=== PATIENT | female | born 1935 | race Asian ===

== ENCOUNTER 2017-05-24 21:44 | Inpatient (IN) | payer MEDICARE, MEDICAID ==
--- NOTE | 2017-05-24 22:29 | ED Physician Chart ---
Chief Complaint/HPI - Patient Information Date Seen:: 05/24/17 Time Seen:: 22:24 Chief Complaint:: abd pain and OH History of Present Illness:: pt here for abd pain x3days in epigastrium. pt speaks no turkish..kyrgyz only. dtr is here and feels comfortable w translating...hx obtained through dtr. pt is eating ok and no change in urine or bm's. no constipation nor diarrhea. no known fever. chronic back pain unchanged. total body pain (per dtr)..usually improves w tylenol. dtr also is concerned pt has had numbness in bilat hands/feet x 2weeks on/off. no trauma. no known cva or mi hx ...although pts mom did have a cva. pt had a sx on neck for spinal stenosis 1 yr ago and hasnt been ambulatory since. pt wears diaper and is chronically incontinent. pt c/o OH now. Allergies:: Allergies Allergy/AdvReac Type Severity Reaction Status Date / Time No Known Allergies Allergy Verified 05/24/17 21:58 Historian:: Patient, Family Member (mom) Review of Systems - Review of Systems General/Constitutional: No fever, No chills, No weight loss, No weakness, No diaphoresis, No edema, No loss of appetite Skin: No skin lesions, No rash, No bruising Head: No headache, No light-headedness Eyes: No loss of vision, No pain, No diplopia ENT: No earache, No nasal drainage, No sore throat, No tinnitus Neck: No neck pain, No swelling, No thyromegaly, No stiffness, No mass noted Cardio Vascular: No chest pain, No palpitations, No PND, No orthopnea, No edema Pulmonary: No SOB, No cough, No sputum, No wheezing GI: No nausea, No vomiting, No diarrhea, Pain, No melena, No hematochezia, No constipation, No hematemesis G/U: No dysuria, No frequency, No hematuria Musculoskeletal: No bone or joint pain, No back pain, No muscle pain Endocrine: No polyuria, No polydipsia Psychiatric: No prior psych history, No depression, No anxiety, No suicidal ideation Hematopoietic: No bruising, No lymphadenopathy Allergic/Immuno: No urticaria, No angioedema Neurological: No syncope, No focal symptoms, No weakness, Paresthesia, Headache , No seizure, No dizziness, No confusion, No vertigo Past Medical History - Past Medical History Past Medical History: HTN, Other (spinal stenosis w sx 1 yr ago, nonambulatory, incontinence) Social History: Other (lives w dtr) Surgical History: other (spinal stenosis w sx 1 yr ago, ) Medication: Reviewed Family Medical History - Family Member Daughter Ethnicity: Non- Living Status: Still Living Physical Exam - Physical Examination General/Constitutional: Awake, Well-developed, well-nourished, Alert, No distress, GCS 15, Non-toxic appearing, Ambulatory Other Gen/Cons comments:: mod obese. alert. no turkish so dtr relied on for details.. no obvious neuro defecit but exam ltd. eomi/perrla no focal weakness. pt has a resting tremor notable in face/jaw and b hands...(is chronic per dtr) no focal weakor numb in limbs /cn 2-12. b legs are weak as pt is nonambulatory x 1 yr but no focal loss of fxn nor asymmetry of strength. Head: Atraumatic Eyes: Lids, conjuctiva normal, PERRL, EOMI Skin: Nl inspection, No rash, No skin lesions, No ecchymosis, Well hydrated, No lymphadenopathy ENMT: External ears, nose nl, Nasal exam nl, Lips, teeth, gums nl Neck: Nontender, Full ROM w/o pain, No JVD, No nuchal rigidity, No bruit, No mass, No stridor Other Neck comments:: prior sx fusion//ltd mobility Respiratory: Nl effort/Exclusion, Clear to Auscultation, No Wheeze/Rhonchi/Rales Cardio Vascular: RRR, No murmur, gallop, rubs, NL S1 S2 GI: No organomegaly, No hernia, Normal BS's, Nondistended, No mass/bruits, No McBurney tenderness Other GI comments:: mild tndr diffuse in abd. no aaa . no mass. pos nabs. no rebound. : No CVA tenderness Extremities: No tenderness or effusion, Full ROM, normal strength in all extremities, No edema, Normal digits & nails Neuro/Psych: Alert/oriented, DTR's symmetric, Normal sensory exam, Normal motor strength, Judgement/insight normal, Mood normal, Normal gait, No focal deficits Misc: normal gait, Normal back, No paraspinal tenderness Labs/Radiology/EKG Results - Lab Results Results: Laboratory Tests 05/24/17 05/24/17 22:43 22:43 WBC 6.0 RBC 3.65 L Hgb 10.9 L Hct 33.1 L MCV 90.7 MCH 29.8 MCHC Differential 32.8 RDW 14.3 Plt Count 324 MPV 7.3 Neutrophils % 55.2 Lymphocytes % 36.4 Monocytes % 5.0 Eosinophils % 1.9 Basophils % 1.5 Sodium 135 L Potassium 3.4 L Chloride 103 Carbon Dioxide 26.5 Anion Gap 8.9 BUN 32 H Creatinine 1.6 H Est GFR ( Amer) TNP Est GFR (Non-Af Amer) TNP BUN/Creatinine Ratio 20.0 Glucose 118 H Calcium 9.7 Total Bilirubin 0.2 L AST 15 ALT 12 Alkaline Phosphatase 49 Total Protein 6.9 Albumin 3.6 L Globulin 3.3 Albumin/Globulin Ratio 1.1 Lipase 62 - Radiology Results Results: ct c-spine c3/4 osteophyte causing mod canal narrowing. occiput to c4 fusion ct head 1.5 cm mass l middle fossa ... abd ct- hazy fat stranding. ruq ? omental infarct?...mod sz left femoral hernia containing fat ED Septic Shock - . Is Septic Shock (SBP<90, OR Lactate>4 mmol\L) present?: No Reassessment (Disposition) - Reassessment Reassessment:: case d/w dr coleman..multiple concerns (and dtr left ed wo notice hrs ago) ...will admit. Reassessment Condition:: Unchanged - Diagnosis Diagnosis:: 1 abdominal pain w intra-abdominal inflammatory changes on ct scan 2 intracraneal mass 3 spinal stenosis 2nd osteophyte - Patient Disposition Admitted to:: Telemetry Condition at Disposition:: Unchanged
[2017-05-24] MEDS ORDERED: Donnatal Liq 5 ML UDC PO ONE (22:35)
[2017-05-24] MEDS ORDERED: Maalox 30 mL Cup PO ONE (22:35)
[2017-05-24 22:53] LABS: % BASOPHILS 1.5 % (0.0-2.0); % EOSINOPHILS 1.9 % (0.0-5.0); % LYMPHOCYTES 36.4 % (20.0-50.0); % NEUTROPHILS 55.2 % (40.0-80.0); HEMATOCRIT 33.1 % (35.0-45.0); HEMOGLOBIN 10.9 gm/dL (11.7-16.1); MEAN CELL VOLUME 90.7 fl (81-100); MEAN CORPUSCULAR HEMOGLOBIN 29.8 pg (27.0-31.0); MEAN CORPUSCULAR HGB CONC 32.8 pg (28.0-36.0); MEAN PLATELET VOLUME 7.3 fl; NEUTROPHILE ABSOLUTE 3.3 Th/cmm (1.8-8.0); PLATELET COUNT 324 Th/cmm (150-400); RED BLOOD COUNT 3.65 Mil/cmm (3.80-5.20); RED CELL DISTRIBUTION WIDTH 14.3 % (11.5-20.0)
[2017-05-24 23:07] LABS: ALB/GLOB RATIO 1.1 (1.0-1.8); ALKALINE PHOSPHATASE 49 U/L (34-104); ANION GAP 8.9 (7.0-16.0); BILIRUBIN,TOTAL 0.2 mg/dL (0.3-1.0); BUN - UREA NITROGEN 32 mg/dL (7-25); CALCIUM SERUM 9.7 mg/dL (8.6-10.3); CARBON DIOXIDE 26.5 mEq/L (21.0-31.0); CHLORIDE 103 mEq/L (98-107); CREATININE - SERUM 1.6 mg/dL (0.6-1.2); GLUCOSE 118 mg/dL (70-105); LIPASE 62 U/L (11-82); POTASSIUM SERUM 3.4 mEq/L (3.5-5.1); SGOT 15 U/L (13-39); SGPT/ALT 12 U/L (7-52); SODIUM SERUM 135 mEq/L (136-145)
[2017-05-24] MEDS ORDERED: Donnatal Liq 5 ML UDC ONE (23:28)
[2017-05-24] MEDS ORDERED: Maalox 30 mL Cup ONE (23:28)
--- NOTE | 2017-05-25 02:34 | Admit Criteria Form ---
Admit Criteria Forms - Admit Criteria Diagnosis: ABDOMINAL PAIN Clinical Indications for Admission to Inpatient Care (Place 'X' for any and all applicable criteria): Admission is indicated for ANY ONE of the following(1)(2)(3)(4)(5): [X ]I. Inpatient admission required rather than observation care (Also use Abdominal Pain: Observation Care, as appropriate) because of ANY ONE of the following: [ ]a) Severe pain requiring acute inpatient management [ ]b) Identification of etiology/finding that requires inpatient care (eg, aortic dissection, free air) [ ]c) Absent bowel sounds with complete ileus(6) [ ]d) Suspected toxic megacolon [ ]e) Severe electrolyte abnormalities requiring inpatient care [ ]f) High fever or infection requiring inpatient admission as indicated by ANY ONE of following(7)(8): [ ] i) Appropriate outpatient or observational care antimicrobial treatment unavailable, not effective, or not feasible [ ] ii) Documented bacteremia [ ] iii) Temperature > 104.9 degrees F (oral) [ ] iv) T >103.1 F (oral) or < 96.8 F(rectal) that does not respond to all emergency treatment measures [ ]g) Signs of intestinal obstruction [B] [ ]h) Hemodynamic instability [ ]i) IV fluid to replace significant ongoing losses (greater than 3 L/m2 per day) (12)(13) [ ]j) Percutaneous or open drainage (eg, abscess, biliary tract ) procedures [ ]k) Parenteral nutrition regimen that must be implemented on inpatient basis [X ]l) Other condition,treatment or monitoring requiring inpatient admission. [ ]II. Peritoneal signs present [ ]III. Surgery needed that cannot be performed on an ambulatory basis. [ ]IV. Evaluation requires patient to not eat or drink for extended period ( eg, more than 24 hours). [ ]V. Contraindications and/or Inappropriate clinical situations for Observational Care in patients with abdominal pain, when ANY ONE of the following is required: [ ]a) Thorough evaluation is required to prevent catastrophic events due to delays in diagnosing (e.g.Mesenteric ischemia) 1,3 [ ]b) Patient with severe pathology or with chronic symptoms unlikely to improve in the ED stay (3) [X ]. General contraindications and/or Inappropriate clinical situations for Observational Care in patients with abdominal pain, when ANY ONE of the following is required: [ X]a) Prediction of prolongation of LOS based on ANY ONE of the following may be considered as a contraindication for observational care 2, 3, 4, 5, 6, 7, 8, 9, 10, 11 [X ]i) Age > 65 yrs. [ ]ii) Patient arriving by ambulance [ ]iii) Patient with high acuity [ ]iv) Patient requiring vital sign monitoring [ ]v) Patient on IV medication [ ]b) Systolic blood pressures 180mmHg 3,12 [ ]c) Patient with altered mental status including delirium and other alteration of consciousness, (3) [ ]d) Patient whose discharge disposition will be to a halfway home or rehabilitation home should not be managed in Emergency Department Observation Unit. CMS rule requires 3 days hospital stay before such placement.3,13 [ ]e) Patient with failure to thrive due to broad array of etiologies 3,16,17 [ ]f) Inability to ambulate 3,14 Extended stay beyond goal length of stay may be needed for(2)(3): [ ]a) Persistent abdominal pain with suspected intra-abdominal process [ ]b) Diagnosed condition requiring continued stay (e.g., pancreatitis, complicated diverticulitis) [ ]c) Surgery (e.g., colectomy) The original [facility] content created by [employer] has been revised. The portions of the content which have been revised are identified through the use of italic text or in bold, and [facility] has neither reviewed nor approved the modified material.All other unmodified content is copyright [facility]. Please see references footnoted in the original [facility] edition 2016 Admit Criteria Met?: Yes
[2017-05-25] MEDS ORDERED: Clindamycin 150 mg/mL 4mL Vial ONE (04:13)
[2017-05-25 04:15] VITALS: BP 151/65
--- NOTE | 2017-05-25 07:50 | General Progress Note ---
Subjective - Review of Systems Service Date: 05/25/17 Events since last encounter: surgical consult 05/25/17 information from daughter - has been complaining of dysuria for a week denies nausea, vomiting, diarrhea has been bedridden since neck surgery 2 years ago for spinal stenosis CT scan abdomen - absent GB, stranding in RUQ ? of omental infarct, free fluid in pelvis with left femoral hernia and small umbilical hernia, no bowel involvement CT spine: C3 and 4 moderate canal narrowing PE - chinese speaking, awake, confusion? abdomen is soft, moderate tenderness in LLQ, no palpable tender area in left femoral and umbilical area identified hernias on CT Plan: in view of normal labs and benign abdomen, will observe, repeat labs in AM Objective - Results Result Diagrams: 05/24/17 22:43 05/24/17 22:43 Recent Labs: Laboratory Last Values WBC 6.0 Th/cmm (4.8-10.8) 05/24/17 22:43 RBC 3.65 Mil/cmm (3.80-5.20) L 05/24/17 22:43 Hgb 10.9 gm/dL (11.7-16.1) L 05/24/17 22:43 Hct 33.1 % (35.0-45.0) L 05/24/17 22:43 MCV 90.7 fl (81-100) 05/24/17 22:43 MCH 29.8 pg (27.0-31.0) 05/24/17 22:43 MCHC Differential 32.8 pg (28.0-36.0) 05/24/17 22:43 RDW 14.3 % (11.5-20.0) 05/24/17 22:43 Plt Count 324 Th/cmm (150-400) 05/24/17 22:43 MPV 7.3 fl 05/24/17 22:43 Neutrophils % 55.2 % (40.0-80.0) 05/24/17 22:43 Lymphocytes % 36.4 % (20.0-50.0) 05/24/17 22:43 Monocytes % 5.0 % (2.0-10.0) 05/24/17 22:43 Eosinophils % 1.9 % (0.0-5.0) 05/24/17 22:43 Basophils % 1.5 % (0.0-2.0) 05/24/17 22:43 Sodium 135 mEq/L (136-145) L 05/24/17 22:43 Potassium 3.4 mEq/L (3.5-5.1) L 05/24/17 22:43 Chloride 103 mEq/L (98-107) 05/24/17 22:43 Carbon Dioxide 26.5 mEq/L (21.0-31.0) 05/24/17 22:43 Anion Gap 8.9 (7.0-16.0) 05/24/17 22:43 BUN 32 mg/dL (7-25) H 05/24/17 22:43 Creatinine 1.6 mg/dL (0.6-1.2) H 05/24/17 22:43 Est GFR ( Amer) TNP 05/24/17 22:43 Est GFR (Non-Af Amer) TNP 05/24/17 22:43 BUN/Creatinine Ratio 20.0 05/24/17 22:43 Glucose 118 mg/dL (70-105) H 05/24/17 22:43 Calcium 9.7 mg/dL (8.6-10.3) 05/24/17 22:43 Total Bilirubin 0.2 mg/dL (0.3-1.0) L 05/24/17 22:43 AST 15 U/L (13-39) 05/24/17 22:43 ALT 12 U/L (7-52) 05/24/17 22:43 Alkaline Phosphatase 49 U/L (34-104) 05/24/17 22:43 Total Protein 6.9 gm/dL (6.0-8.3) 05/24/17 22:43 Albumin 3.6 gm/dL (3.7-5.3) L 05/24/17 22:43 Globulin 3.3 gm/dL 05/24/17 22:43 Albumin/Globulin Ratio 1.1 (1.0-1.8) 05/24/17 22:43 Lipase 62 U/L (11-82) 05/24/17 22:43 - Physical Exam Vitals and I&O: Vital Signs Temp 97.6 F 05/25/17 04:27 Pulse 67 05/25/17 04:27 Resp 18 05/25/17 04:27 BP 151/67 05/25/17 04:27 Pulse Ox 95 05/25/17 04:27 Intake & Output 05/24/17 05/25/17 05/25/17 18:59 06:59 18:59 Intake Total 100 Balance 100 Weight (lbs) 70.307 kg Intake: Intake, IV Amount 100 Other: # Voids 1 # Bowel Movements 0
[2017-05-25] MEDS ORDERED: Non-Formulary Item 1 EA (Pravastatin Sodium [Pravastatin*] 40 MG) PO SCH (09:00)
[2017-05-25] MEDS ORDERED: OMEPRAZOLE 10 MG PO SCH (09:00)
[2017-05-25] MEDS ORDERED: LYCOPEN PO SCH (09:00)
[2017-05-25] MEDS ORDERED: HYDRALAZINE HCL 50 MG PO SCH (09:00)
[2017-05-25] MEDS ORDERED: MULTIVIT MIN PO SCH (09:00)
[2017-05-25] MEDS ORDERED: LUTEIN PO SCH (09:00)
[2017-05-25] MEDS ORDERED: [UNRECOGNIZED DRUG - OTHER] PO SCH (09:00)
[2017-05-25] MEDS ORDERED: ICOSAPENT ETHYL PO SCH (09:00)
[2017-05-25] MEDS: Triamcinolone Acetonide 0.1% Cream 15 gm TP SCH (09:30)
[2017-05-25] MEDS ORDERED: VTE Chemical Prophylaxis Screen/Admission MC PRN (10:00)
--- NOTE | 2017-05-25 11:13 | Diagnostic Imaging Report ---
CT scan of the brain without intravenous contrast HISTORY: Headache Total DLP equals 581 CTDI equals 33.2 Axial sections were obtained from the base of the skull to the vertex. There is enlargement of ventricular system along with enlargement of cerebral sulci and subarachnoid cisterns reflecting atrophy. Hypodensity is seen through the supratentorial white matter regions. No mass effect. Findings may be associated with chronic small vessel ischemic disease. The exam of the posterior fossa is compromised and limited due to artifact associated with adjacent metallic surgical hardware. There is an approximate 1.5 cm round extra-axial hyperdense lesion within the left temporal area adjacent to the sella turcica. The appearance is most likely related to a meningioma. However, comparison with prior examinations or a follow-up MRI exam would provide additional assessment. No significant mass effect. IMPRESSION: 1. Hyperdense extra-axial lesion within the left middle cranial fossa most likely related to a meningioma. No mass effect. Comparison with prior studies or a follow-up MRI exam advised for further characterization and assessment. 2. No acute intracerebral abnormalities 3. Limited exam of the posterior fossa related to metallic surgical hardware artifact. 4. Cerebral atrophy 5. Supratentorial white matter changes that may be associated with chronic small vessel ischemic disease
--- NOTE | 2017-05-25 11:33 | Diagnostic Imaging Report ---
CT scan cervical spine HISTORY: Pain Total DLP equals 376 CTDI equals 23.5 Axial sections were obtained through the cervical spine. Additional sagittal and coronal reformatted images are provided. Exam is limited due to artifact related to metallic surgical hardware traversing the upper cervical spine and base of the skull. There is fusion involving C2-3, C3-4. Severe narrowing of the remaining intervertebral disc spaces. Extensive hypertrophic spur formation noted about the endplates of all vertebrae. Hypertrophic bone results in mild to moderate extradural encroachment on the anterior spinal canal at C2-3 and C3-4. Additional spur formation results in extradural encroachment at C5-6. Additional degenerative changes noted in the visualized upper thoracic spine. No definite acute bony abnormalities. Specifically, no definite acute fractures. Atherosclerotic calcification seen through the carotid arteries. There is suggestion of a 2.0 cm hypodense nodule within the left lobe of the thyroid gland. A thyroid ultrasound exam would provide additional characterization. IMPRESSION: 1. Limited exam due to artifact associated with extensive callus surgical hardware 2. Surgical changes associated with fusion as noted above 3. Diffuse severe degenerative changes 4. Left thyroid nodule. A thyroid ultrasound would provide additional assessment and characterization 5. Atherosclerotic vascular changes
--- NOTE | 2017-05-25 11:44 | Diagnostic Imaging Report ---
CT scan abdomen and pelvis without intravenous contrast HISTORY: Pain Total DLP equals 543 CTDI equals 12.2 Axial sections were obtained from the xiphoid process down to the pubic symphysis. Mild haziness is noted within the pericolonic fat within the right upper quadrant of the abdomen. No discrete abnormal mass or abnormal fluid collection. The findings of questionable significance but should be correlated clinically. The liver exhibits a normal size and contour. No focal lesions. The spleen appears normal. No focal abnormality seen in the region of the pancreas. Surgical clips are seen in the nilesh hepatis region consistent with prior cholecystectomy. Right kidney appears normal. An approximate 4.0 cm cyst extends off the lateral cortex of the left kidney. Mild dilatation of the left renal pelvis without elizabeth hydronephrosis. Severe extensive atherosclerotic vascular calcification noted within the abdominal aorta and major branches. The exam of the pelvis demonstrates preservation of normal fat planes. No abnormal soft tissue masses or abnormal fluid collections. There is an approximate 7.0 x 5.0 x 4.7 cm well-circumscribed hypodense lesion with density measurements consistent with fatty composition adjacent to the anterior aspect of the left hip. Findings may be associated with a lipoma. Severe degenerative changes noted to the spine. Bilateral spondylolysis and spondylolisthesis seen at L5-S1. IMPRESSION: 1. Mild haziness of the pericolonic fat within the right upper quadrant of the abdomen. Findings of questionable significance and should be correlated clinically. No other acute abnormalities 3. Status post cholecystectomy 4. Left renal cysts 5. Well-circumscribed fatty lesion within the soft tissues adjacent to the anterior aspect of the left hip 6. Severe degenerative changes throughout the spine along with bilateral spondylolysis and spondylolisthesis L5-S1
--- NOTE | 2017-05-25 15:17 | Diagnostic Imaging Report ---
KUB abdominal film (portable) HISTORY: Pain There is a nonspecific gas pattern of nondilated bowel. No free intraperitoneal air. Severe degenerative changes noted within the spine. Atherosclerotic vascular calcification noted. Surgical clips are seen in the right upper quadrant of the abdomen consistent with a prior cholecystectomy. IMPRESSION: 1. Nonspecific gas pattern with no acute radiographic abnormalities
[2017-05-25] MEDS: Dicyclomine 10 mg Cap PO SCH (16:30)
[2017-05-25] MEDS: Hydrocodone/APAP 5mg/325mg Tab PO PRN (21:31)
[2017-05-26 05:31] LABS: % BASOPHILS 0.6 % (0.0-2.0); % EOSINOPHILS 1.5 % (0.0-5.0); % LYMPHOCYTES 31.2 % (20.0-50.0); % MONOCYTES 4.3 % (2.0-10.0); % NEUTROPHILS 62.4 % (40.0-80.0); HEMATOCRIT 31.5 % (35.0-45.0); HEMOGLOBIN 10.3 gm/dL (11.7-16.1); MEAN CELL VOLUME 91.2 fl (81-100); MEAN CORPUSCULAR HEMOGLOBIN 29.9 pg (27.0-31.0); MEAN CORPUSCULAR HGB CONC 32.8 pg (28.0-36.0); MEAN PLATELET VOLUME 7.3 fl; NEUTROPHILE ABSOLUTE 4.6 Th/cmm (1.8-8.0); PLATELET COUNT 301 Th/cmm (150-400); RED BLOOD COUNT 3.45 Mil/cmm (3.80-5.20); RED CELL DISTRIBUTION WIDTH 14.6 % (11.5-20.0); WHITE BLOOD COUNT 7.2 Th/cmm (4.8-10.8)
[2017-05-26 05:44] LABS: INR 0.92 (0.5-1.4); PROTHROMBIN TIME (TEST) 9.6 SECONDS (9.5-11.5)
[2017-05-26 06:42] LABS: ALB/GLOB RATIO 1.2 (1.0-1.8); ALKALINE PHOSPHATASE 73 U/L (34-104); ANION GAP 6.9 (7.0-16.0); BILIRUBIN,TOTAL 0.3 mg/dL (0.3-1.0); BUN - UREA NITROGEN 23 mg/dL (7-25); BUN/CREATININE RATIO 17.7; CALCIUM SERUM 9.4 mg/dL (8.6-10.3); CARBON DIOXIDE 29.6 mEq/L (21.0-31.0); CHLORIDE 106 mEq/L (98-107); CREATININE - SERUM 1.3 mg/dL (0.6-1.2); GLUCOSE 89 mg/dL (70-105); POTASSIUM SERUM 3.5 mEq/L (3.5-5.1); SGOT 41 U/L (13-39); SGPT/ALT 20 U/L (7-52); SODIUM SERUM 139 mEq/L (136-145)
--- NOTE | 2017-05-26 09:05 | History and Physical ---
History of Present Illness - HPI HPI & Vital Signs: Last Vital Signs Temp 98.4 F 05/26/17 04:00 Pulse 58 05/26/17 04:00 Resp 18 05/26/17 04:00 BP 138/63 05/26/17 04:00 Pulse Ox 96 05/26/17 04:00 81 yrs female admitted to [facility] for evaluation fo dizziness,abd pain and abnormal CT abd pelvis.Patient is bed bound and lives with her 80 yrs old . Due to language barrier unable to get meaningful history. Past Medical History Cardiovascular: Report: HTN, Hyperlipidemia FIELD CONTACT TECHNICIAN: Report: Peripheral neuropathy, Other (S/p cervical spine surgery.) GI: Report: Diverticulosis Psych: Report: No Pertinent Hx Musculoskeletal: Report: Osteoarthritis Family Medical History - Family Member Daughter History Unknown: Yes Ethnicity: Unknown (Egeyptian) Living Status: Still Living Hx Family Cancer: No Hx Family Coronary Artery Disease: No Hx Family Congestive Heart Failure: No Hx Family Hypertension: Yes Hx Family Stroke: No Hx Family Diabetes: Yes Hx Family Seizures: No Hx Family Dementia: No Social History Smoke: No Alcohol: None Drugs: None Lives: With Family - Medications Home Medications: Home Medication Medication Instructions Recorded Type Acetaminophen [Tylenol] 325 mg PO BID 05/24/17 History Amlodipine Besylate 10 mg PO DAILY 05/24/17 History Clonidine HCl [Catapres] 0.1 mg PO BID PRN 05/24/[address] [Cymbalta] 30 mg PO HS 05/24/17 History Ezetimibe [Zetia] 10 mg PO DAILY 05/24/17 History Gabapentin 400 mg PO TID 05/24/17 History Hydralazine HCl [Hydralazine HCl] 50 mg PO TID 05/24/17 History Hydrochlorothiazide [Hctz] 12.5 mg PO DAILY 05/24/17 History Icosapent Ethyl [Vascepa] 2 cap PO BID 05/24/17 History Metoprolol Succinate 50 mg PO BID 05/24/17 History Montelukast [Singulair] 10 mg PO QPM 05/24/17 History Multivit-Min/FA/Lycopen/Lutein 1 each PO DAILY 05/24/17 History [Centrum Silver Tablet] Omeprazole 10 mg PO DAILY 05/24/17 History Pravastatin Sodium [Pravastatin*] 40 mg PO DAILY 05/24/17 History Triamcinolone Acet 0.1% Cream 1 appl TP BID 05/24/17 History [Kenalog 0.1%] - Allergies Allergies/Adverse Reactions: Allergies Allergy/AdvReac Type Severity Reaction Status Date / Time No Known Allergies Allergy Verified 05/24/17 21:58 Review of Systems - Review of Systems Constitutional: Report: Other Eyes: Report: Other ENT: Report: Other Respiratory: Report: Sputum Cardiovascular: Report: Other Gastrointestinal: Report: Other Genitourinary: Report: Other Musculoskeletal: Report: Other Skin: Report: Other Neurological: Report: Other Other: Unable to get meaningful history due to langauge barrier PE - Physical Exam HEENT: Report: Ears Nose Throat Within Normal Limits Neck: Report: WNL Cardiovascular Systems: Report: +s1/s2 noted, Regular, Rate and Rhythm, Systolic Murmur Respiratory: Report: Clear to Auscultation of lung flores Abdomen: Report: Tender to palpation Back: Report: Inspection of back is within normal limits. Extremities: Report: No pedal edema was noted on inspection Skin: Report: Color of skin is within normal limits Neuro/Psych: Report: Weakness or sensory loss noted. (spasticity,intention tremor on RUE and face.) - Lab Results All Lab Results last 24 hours: Laboratory Last Values WBC 7.2 Th/cmm (4.8-10.8) 05/26/17 04:50 RBC 3.45 Mil/cmm (3.80-5.20) L 05/26/17 04:50 Hgb 10.3 gm/dL (11.7-16.1) L 05/26/17 04:50 Hct 31.5 % (35.0-45.0) L 05/26/17 04:50 MCV 91.2 fl (81-100) 05/26/17 04:50 MCH 29.9 pg (27.0-31.0) 05/26/17 04:50 MCHC Differential 32.8 pg (28.0-36.0) 05/26/17 04:50 RDW 14.6 % (11.5-20.0) 05/26/17 04:50 Plt Count 301 Th/cmm (150-400) 05/26/17 04:50 MPV 7.3 fl 05/26/17 04:50 Neutrophils % 62.4 % (40.0-80.0) 05/26/17 04:50 Lymphocytes % 31.2 % (20.0-50.0) 05/26/17 04:50 Monocytes % 4.3 % (2.0-10.0) 05/26/17 04:50 Eosinophils % 1.5 % (0.0-5.0) 05/26/17 04:50 Basophils % 0.6 % (0.0-2.0) 05/26/17 04:50 PT 9.6 SECONDS (9.5-11.5) 05/26/17 04:50 INR 0.92 (0.5-1.4) 05/26/17 04:50 Sodium 139 mEq/L (136-145) 05/26/17 04:50 Potassium 3.5 mEq/L (3.5-5.1) 05/26/17 04:50 Chloride 106 mEq/L (98-107) 05/26/17 04:50 Carbon Dioxide 29.6 mEq/L (21.0-31.0) 05/26/17 04:50 Anion Gap 6.9 (7.0-16.0) L 05/26/17 04:50 BUN 23 mg/dL (7-25) 05/26/17 04:50 Creatinine 1.3 mg/dL (0.6-1.2) H 05/26/17 04:50 Est GFR ( Amer) TNP 05/26/17 04:50 Est GFR (Non-Af Amer) TNP 05/26/17 04:50 BUN/Creatinine Ratio 17.7 05/26/17 04:50 Glucose 89 mg/dL (70-105) 05/26/17 04:50 Calcium 9.4 mg/dL (8.6-10.3) 05/26/17 04:50 Total Bilirubin 0.3 mg/dL (0.3-1.0) 05/26/17 04:50 AST 41 U/L (13-39) H 05/26/17 04:50 ALT 20 U/L (7-52) 05/26/17 04:50 Alkaline Phosphatase 73 U/L (34-104) 05/26/17 04:50 Total Protein 6.1 gm/dL (6.0-8.3) 05/26/17 04:50 Albumin 3.3 gm/dL (3.7-5.3) L 05/26/17 04:50 Globulin 2.8 gm/dL 05/26/17 04:50 Albumin/Globulin Ratio 1.2 (1.0-1.8) 05/26/17 04:50 Lipase 62 U/L (11-82) 05/24/17 22:43 TSH 0.85 uIU/ml (0.34-5.60) 05/25/17 10:40 Laboratory Results - last 24 hr 05/25/17 05/26/17 05/26/17 10:40 04:50 04:50 WBC 7.2 RBC 3.45 L Hgb 10.3 L Hct 31.5 L MCV 91.2 MCH 29.9 MCHC Differential 32.8 RDW 14.6 Plt Count 301 MPV 7.3 Neutrophils % 62.4 Lymphocytes % 31.2 Monocytes % 4.3 Eosinophils % 1.5 Basophils % 0.6 PT INR Sodium 139 Potassium 3.5 Chloride 106 Carbon Dioxide 29.6 Anion Gap 6.9 L BUN 23 Creatinine 1.3 H Est GFR ( Amer) TNP Est GFR (Non-Af Amer) TNP BUN/Creatinine Ratio 17.7 Glucose 89 Calcium 9.4 Total Bilirubin 0.3 AST 41 H ALT 20 Alkaline Phosphatase 73 Total Protein 6.1 Albumin 3.3 L Globulin 2.8 Albumin/Globulin Ratio 1.2 TSH 0.85 05/26/17 04:50 WBC RBC Hgb Hct MCV MCH MCHC Differential RDW Plt Count MPV Neutrophils % Lymphocytes % Monocytes % Eosinophils % Basophils % PT 9.6 INR 0.92 Sodium Potassium Chloride Carbon Dioxide Anion Gap BUN Creatinine Est GFR ( Amer) Est GFR (Non-Af Amer) BUN/Creatinine Ratio Glucose Calcium Total Bilirubin AST ALT Alkaline Phosphatase Total Protein Albumin Globulin Albumin/Globulin Ratio TSH - Assessment Assessment: Abdonminal Pain. Dizziness. Abnormal CT abd pelvis. Numbness on extremites. Hypertension. Hyperlipedemia. DJD S/p cervical spine surgery Bed bound. - Plan Plan: GI and General surgery consult. Neurology consult. IV antibiotics. Symptoms control. General nursing care. Monitor lab. Follow lab. Follow consultants recomendations. Med reconciled meds. Discussed with RN and Family. All questions answered.
--- NOTE | 2017-05-26 09:25 | General Progress Note ---
Subjective - Review of Systems Subjective: Patient seen and examined. Unable to get meaningful history from the patient. Discussed with patient's family yesterday about the patient's condition diagnosis and treatment plan. Patient is scheduled to have initiated today. Objective - Results Result Diagrams: 05/26/17 04:50 05/26/17 04:50 Recent Labs: Laboratory Last Values WBC 7.2 Th/cmm (4.8-10.8) 05/26/17 04:50 RBC 3.45 Mil/cmm (3.80-5.20) L 05/26/17 04:50 Hgb 10.3 gm/dL (11.7-16.1) L 05/26/17 04:50 Hct 31.5 % (35.0-45.0) L 05/26/17 04:50 MCV 91.2 fl (81-100) 05/26/17 04:50 MCH 29.9 pg (27.0-31.0) 05/26/17 04:50 MCHC Differential 32.8 pg (28.0-36.0) 05/26/17 04:50 RDW 14.6 % (11.5-20.0) 05/26/17 04:50 Plt Count 301 Th/cmm (150-400) 05/26/17 04:50 MPV 7.3 fl 05/26/17 04:50 Neutrophils % 62.4 % (40.0-80.0) 05/26/17 04:50 Lymphocytes % 31.2 % (20.0-50.0) 05/26/17 04:50 Monocytes % 4.3 % (2.0-10.0) 05/26/17 04:50 Eosinophils % 1.5 % (0.0-5.0) 05/26/17 04:50 Basophils % 0.6 % (0.0-2.0) 05/26/17 04:50 PT 9.6 SECONDS (9.5-11.5) 05/26/17 04:50 INR 0.92 (0.5-1.4) 05/26/17 04:50 Sodium 139 mEq/L (136-145) 05/26/17 04:50 Potassium 3.5 mEq/L (3.5-5.1) 05/26/17 04:50 Chloride 106 mEq/L (98-107) 05/26/17 04:50 Carbon Dioxide 29.6 mEq/L (21.0-31.0) 05/26/17 04:50 Anion Gap 6.9 (7.0-16.0) L 05/26/17 04:50 BUN 23 mg/dL (7-25) 05/26/17 04:50 Creatinine 1.3 mg/dL (0.6-1.2) H 05/26/17 04:50 Est GFR ( Amer) TNP 05/26/17 04:50 Est GFR (Non-Af Amer) TNP 05/26/17 04:50 BUN/Creatinine Ratio 17.7 05/26/17 04:50 Glucose 89 mg/dL (70-105) 05/26/17 04:50 Calcium 9.4 mg/dL (8.6-10.3) 05/26/17 04:50 Total Bilirubin 0.3 mg/dL (0.3-1.0) 05/26/17 04:50 AST 41 U/L (13-39) H 05/26/17 04:50 ALT 20 U/L (7-52) 05/26/17 04:50 Alkaline Phosphatase 73 U/L (34-104) 05/26/17 04:50 Total Protein 6.1 gm/dL (6.0-8.3) 05/26/17 04:50 Albumin 3.3 gm/dL (3.7-5.3) L 05/26/17 04:50 Globulin 2.8 gm/dL 05/26/17 04:50 Albumin/Globulin Ratio 1.2 (1.0-1.8) 05/26/17 04:50 Lipase 62 U/L (11-82) 05/24/17 22:43 TSH 0.85 uIU/ml (0.34-5.60) 05/25/17 10:40 - Physical Exam Vitals and I&O: Vital Signs Temp 98.4 F 05/26/17 04:00 Pulse 58 05/26/17 04:00 Resp 18 05/26/17 04:00 BP 138/63 05/26/17 04:00 Pulse Ox 96 05/26/17 04:00 Intake & Output 05/25/17 05/26/17 05/26/17 18:59 06:59 18:59 Intake Total 300 60 Balance 300 60 Weight (lbs) 70.307 kg 70.307 kg Intake: Oral 300 60 Other: # Voids 3 Active Medications: Current Medications Acetaminophen (Tylenol) 325 mg PO BID [facility] Stop: 07/24/17 08:59 Last Admin: 05/25/17 16:28 Dose: 325 mg Acetaminophen/Hydrocodone Bitart ([place] 5mg/325mg) 1 tab PO Q6H PRN PRN Reason: Pain (Severe) Stop: 07/24/17 20:50 Last Admin: 05/25/17 21:31 Dose: 1 tab Amlodipine Besylate (Norvasc) 10 mg PO DAILY [facility] Stop: 07/24/17 08:59 Last Admin: 05/25/17 10:01 Dose: 10 mg Clonidine HCl (Catapres) 0.1 mg PO BID PRN PRN Reason: BP MAINTENANCE (PER PROTOCOL) Stop: 07/24/17 08:04 Dicyclomine HCl (Bentyl) 20 mg PO BID [facility] Stop: 07/24/17 16:59 Last Admin: 05/25/17 16:30 Dose: 20 mg Duloxetine HCl (Cymbalta) 30 mg PO HS [facility] PRN Reason: Protocol Stop: 07/24/17 20:59 Last Admin: 05/25/17 21:30 Dose: 30 mg Ezetimibe (Zetia) 10 mg PO DAILY [facility] Stop: 07/24/17 08:59 Last Admin: 05/25/17 10:01 Dose: 10 mg Gabapentin (Neurontin) 400 mg PO TID [facility] Stop: 07/24/17 08:59 Last Admin: 05/25/17 21:32 Dose: 400 mg Heparin Sodium (Porcine) (Heparin) 5,000 units SUBQ Q12HR [facility] Stop: 07/24/17 20:59 Last Admin: 05/25/17 20:59 Dose: Not Given Hydralazine HCl (Apresoline) 50 mg PO TID [facility] Stop: 07/24/17 13:59 Last Admin: 05/25/17 21:30 Dose: 50 mg Hydrochlorothiazide (Hctz) 12.5 mg PO DAILY [facility] Stop: 07/24/17 08:59 Last Admin: 05/25/17 09:30 Dose: 12.5 mg Metoprolol Succinate (Toprol Xl) 50 mg PO BID [facility] Stop: 07/24/17 08:59 Last Admin: 05/25/17 16:29 Dose: 50 mg Miscellaneous (Icosapent Ethyl [Vascepa]) 2 cap PO BID [facility] Stop: 07/24/17 08:59 Last Admin: 05/25/17 09:00 Dose: Not Given Miscellaneous (Vte Chemical Prophylaxis Screen/ Admission) 1 ea [facility] PRN PRN PRN Reason: PROTOCOL Stop: 07/24/17 09:59 Montelukast Sodium (Singulair) 10 mg PO QPM [facility] Stop: 07/24/17 16:59 Last Admin: 05/25/17 16:30 Dose: 10 mg Multivitamins/Vitamin C (Theragran) 1 tab PO DAILY [facility] Stop: 07/25/17 08:59 Pantoprazole Sodium (Protonix) 40 mg PO DAILY [facility] Stop: 07/25/17 08:59 Simvastatin (Zocor) 20 mg PO DAILY [facility] Stop: 07/25/17 08:59 Triamcinolone Acetonide (Kenalog 0.1%) 1 appl TP BID [facility] Stop: 07/24/17 08:59 Last Admin: 05/25/17 09:30 Dose: 1 appl General: Alert, Cooperative HEENT: PERRLA, EOMI Neck: Supple Cardiovascular: Regular rate, Normal S1, Normal S2, Systolic murmurs Lungs: Clear to auscultation Abdomen: Bowel sounds, Tender, Guarding Extremities: Other (diffuse DJD.) Assessment/Plan - Assessment Assessment: Diffuse upper abdominal pain. Abnormal is CT abdomen pelvis. Diffuse DJD. Hypertension. Hyperlipidemia. Bedbound. Intention tremors. Social issues. - Plan Plan: Upper endoscopy. Symptoms management. Gen. nursing care. Follow lab. Follow consultants recommendations. Medication management Continue current treatment plan. Care plan and discussed with staff. Possible discharge to alf.
--- NOTE | 2017-05-26 09:42 | Diagnostic Imaging Report ---
Portable chest x-ray History: Shortness of breath Allowing for portable technique the heart size is normal. Atherosclerotic calcination seen in the aortic arch. No focal pulmonary parenchymal processes. No hilar or mediastinal abnormalities. Impression: 1. No acute abnormalities 2. Atherosclerotic vascular changes
[2017-05-26] MEDS: Pantoprazole 40 mg EC Tab PO SCH (11:19)
[2017-05-26] MEDS: Multivitamin Tab PO SCH (11:20)
[2017-05-26] MEDS: Dicyclomine 10 mg Cap PO SCH ×2 (11:25→17:58)
[2017-05-26] MEDS: Triamcinolone Acetonide 0.1% Cream 15 gm TP SCH ×3 (11:26→19:08)
[2017-05-26] MEDS: Fish Oil 1,000 MG SGL PO SCH (17:55)
--- NOTE | 2017-05-26 19:04 | General Progress Note ---
Subjective - Review of Systems Service Date: 05/26/17 Events since last encounter: had EGD today - await results, not printed Objective - Results Result Diagrams: 05/26/17 04:50 05/26/17 04:50 Recent Labs: Laboratory Last Values WBC 7.2 Th/cmm (4.8-10.8) 05/26/17 04:50 RBC 3.45 Mil/cmm (3.80-5.20) L 05/26/17 04:50 Hgb 10.3 gm/dL (11.7-16.1) L 05/26/17 04:50 Hct 31.5 % (35.0-45.0) L 05/26/17 04:50 MCV 91.2 fl (81-100) 05/26/17 04:50 MCH 29.9 pg (27.0-31.0) 05/26/17 04:50 MCHC Differential 32.8 pg (28.0-36.0) 05/26/17 04:50 RDW 14.6 % (11.5-20.0) 05/26/17 04:50 Plt Count 301 Th/cmm (150-400) 05/26/17 04:50 MPV 7.3 fl 05/26/17 04:50 Neutrophils % 62.4 % (40.0-80.0) 05/26/17 04:50 Lymphocytes % 31.2 % (20.0-50.0) 05/26/17 04:50 Monocytes % 4.3 % (2.0-10.0) 05/26/17 04:50 Eosinophils % 1.5 % (0.0-5.0) 05/26/17 04:50 Basophils % 0.6 % (0.0-2.0) 05/26/17 04:50 PT 9.6 SECONDS (9.5-11.5) 05/26/17 04:50 INR 0.92 (0.5-1.4) 05/26/17 04:50 Sodium 139 mEq/L (136-145) 05/26/17 04:50 Potassium 3.5 mEq/L (3.5-5.1) 05/26/17 04:50 Chloride 106 mEq/L (98-107) 05/26/17 04:50 Carbon Dioxide 29.6 mEq/L (21.0-31.0) 05/26/17 04:50 Anion Gap 6.9 (7.0-16.0) L 05/26/17 04:50 BUN 23 mg/dL (7-25) 05/26/17 04:50 Creatinine 1.3 mg/dL (0.6-1.2) H 05/26/17 04:50 Est GFR ( Amer) TNP 05/26/17 04:50 Est GFR (Non-Af Amer) TNP 05/26/17 04:50 BUN/Creatinine Ratio 17.7 05/26/17 04:50 Glucose 89 mg/dL (70-105) 05/26/17 04:50 Calcium 9.4 mg/dL (8.6-10.3) 05/26/17 04:50 Total Bilirubin 0.3 mg/dL (0.3-1.0) 05/26/17 04:50 AST 41 U/L (13-39) H 05/26/17 04:50 ALT 20 U/L (7-52) 05/26/17 04:50 Alkaline Phosphatase 73 U/L (34-104) 05/26/17 04:50 Total Protein 6.1 gm/dL (6.0-8.3) 05/26/17 04:50 Albumin 3.3 gm/dL (3.7-5.3) L 05/26/17 04:50 Globulin 2.8 gm/dL 05/26/17 04:50 Albumin/Globulin Ratio 1.2 (1.0-1.8) 05/26/17 04:50 Lipase 62 U/L (11-82) 05/24/17 22:43 Vitamin B12 657 pg/mL (211-946) 05/25/17 10:40 Folic Acid >20.0 ng/mL (>3.0) 05/25/17 10:40 TSH 0.85 uIU/ml (0.34-5.60) 05/25/17 10:40 - Physical Exam Vitals and I&O: Vital Signs Temp 97.8 F 05/26/17 08:00 Pulse 98 05/26/17 17:55 Resp 20 05/26/17 08:00 BP 158/68 05/26/17 17:55 Pulse Ox 96 05/26/17 08:00 Intake & Output 05/26/17 05/26/17 05/27/17 06:59 18:59 06:59 Intake Total 60 250 Balance 60 250 Weight (lbs) 70.307 kg 70.307 kg Intake: Oral 60 250 Other: # Voids 3 # Bowel Movements 0 Active Medications: Current Medications Acetaminophen (Tylenol) 325 mg PO BID [facility] Stop: 07/24/17 08:59 Last Admin: 05/26/17 17:59 Dose: 325 mg Acetaminophen/Hydrocodone Bitart ([place] 5mg/325mg) 1 tab PO Q6H PRN PRN Reason: Pain (Severe) Stop: 07/24/17 20:50 Last Admin: 05/25/17 21:31 Dose: 1 tab Amlodipine Besylate (Norvasc) 10 mg PO DAILY [facility] Stop: 07/24/17 08:59 Last Admin: 05/26/17 11:18 Dose: Not Given Clonidine HCl (Catapres) 0.1 mg PO BID PRN PRN Reason: BP MAINTENANCE (PER PROTOCOL) Stop: 07/24/17 08:04 Dicyclomine HCl (Bentyl) 20 mg PO BID [facility] Stop: 07/24/17 16:59 Last Admin: 05/26/17 17:58 Dose: 20 mg Duloxetine HCl (Cymbalta) 30 mg PO HS [facility] PRN Reason: Protocol Stop: 07/24/17 20:59 Last Admin: 05/25/17 21:30 Dose: 30 mg Ezetimibe (Zetia) 10 mg PO DAILY [facility] Stop: 07/24/17 08:59 Last Admin: 05/26/17 11:25 Dose: Not Given Fish Oil ([place] 3) 2,000 mg PO BID [facility] Stop: 07/24/17 08:59 Last Admin: 05/26/17 17:55 Dose: 2,000 mg Gabapentin (Neurontin) 400 mg PO TID [facility] Stop: 07/24/17 08:59 Last Admin: 05/26/17 14:00 Dose: Not Given Heparin Sodium (Porcine) (Heparin) 5,000 units SUBQ Q12HR [facility] Stop: 07/24/17 20:59 Last Admin: 05/26/17 11:23 Dose: Not Given Hydralazine HCl (Apresoline) 50 mg PO TID [facility] Stop: 07/24/17 13:59 Last Admin: 05/26/17 14:00 Dose: Not Given Hydrochlorothiazide (Hctz) 12.5 mg PO DAILY [facility] Stop: 07/24/17 08:59 Last Admin: 05/26/17 11:21 Dose: Not Given Metoprolol Succinate (Toprol Xl) 50 mg PO BID [facility] Stop: 07/24/17 08:59 Last Admin: 05/26/17 17:55 Dose: 50 mg Miscellaneous (Vte Chemical Prophylaxis Screen/ Admission) 1 ea [facility] PRN PRN PRN Reason: PROTOCOL Stop: 07/24/17 09:59 Montelukast Sodium (Singulair) 10 mg PO QPM [facility] Stop: 07/24/17 16:59 Last Admin: 05/25/17 16:30 Dose: 10 mg Multivitamins/Vitamin C (Theragran) 1 tab PO DAILY [facility] Stop: 07/25/17 08:59 Last Admin: 05/26/17 11:20 Dose: Not Given Pantoprazole Sodium (Protonix) 40 mg PO DAILY [facility] Stop: 07/25/17 08:59 Last Admin: 05/26/17 11:19 Dose: Not Given Simvastatin (Zocor) 20 mg PO DAILY [facility] Stop: 07/25/17 08:59 Last Admin: 05/26/17 11:19 Dose: Not Given Sucralfate (Carafate) 1 gm PO AC [facility] Stop: 07/25/17 16:29 Triamcinolone Acetonide (Kenalog 0.1%) 1 appl TP BID [facility] Stop: 07/24/17 08:59 Last Admin: 05/26/17 11:26 Dose: Not Given
[2017-05-27] MEDS: Hydrocodone/APAP 5mg/325mg Tab PO PRN ×2 (00:20→21:38)
[2017-05-27] MEDS: Pantoprazole 40 mg EC Tab PO SCH (10:35)
[2017-05-27] MEDS: Fish Oil 1,000 MG SGL PO SCH ×2 (10:35→16:46)
[2017-05-27] MEDS: Multivitamin Tab PO SCH (10:36)
[2017-05-27] MEDS: Dicyclomine 10 mg Cap PO SCH ×2 (10:37→16:47)
[2017-05-27] MEDS: Triamcinolone Acetonide 0.1% Cream 15 gm TP SCH ×2 (10:41→18:41)
--- NOTE | 2017-05-27 11:23 | General Progress Note ---
Subjective - Review of Systems Service Date: 05/27/17 Events since last encounter: EGD results noted no surgical problem at this time Objective - Results Result Diagrams: 05/26/17 04:50 05/26/17 04:50 Recent Labs: Laboratory Last Values WBC 7.2 Th/cmm (4.8-10.8) 05/26/17 04:50 RBC 3.45 Mil/cmm (3.80-5.20) L 05/26/17 04:50 Hgb 10.3 gm/dL (11.7-16.1) L 05/26/17 04:50 Hct 31.5 % (35.0-45.0) L 05/26/17 04:50 MCV 91.2 fl (81-100) 05/26/17 04:50 MCH 29.9 pg (27.0-31.0) 05/26/17 04:50 MCHC Differential 32.8 pg (28.0-36.0) 05/26/17 04:50 RDW 14.6 % (11.5-20.0) 05/26/17 04:50 Plt Count 301 Th/cmm (150-400) 05/26/17 04:50 MPV 7.3 fl 05/26/17 04:50 Neutrophils % 62.4 % (40.0-80.0) 05/26/17 04:50 Lymphocytes % 31.2 % (20.0-50.0) 05/26/17 04:50 Monocytes % 4.3 % (2.0-10.0) 05/26/17 04:50 Eosinophils % 1.5 % (0.0-5.0) 05/26/17 04:50 Basophils % 0.6 % (0.0-2.0) 05/26/17 04:50 PT 9.6 SECONDS (9.5-11.5) 05/26/17 04:50 INR 0.92 (0.5-1.4) 05/26/17 04:50 Sodium 139 mEq/L (136-145) 05/26/17 04:50 Potassium 3.5 mEq/L (3.5-5.1) 05/26/17 04:50 Chloride 106 mEq/L (98-107) 05/26/17 04:50 Carbon Dioxide 29.6 mEq/L (21.0-31.0) 05/26/17 04:50 Anion Gap 6.9 (7.0-16.0) L 05/26/17 04:50 BUN 23 mg/dL (7-25) 05/26/17 04:50 Creatinine 1.3 mg/dL (0.6-1.2) H 05/26/17 04:50 Est GFR ( Amer) TNP 05/26/17 04:50 Est GFR (Non-Af Amer) TNP 05/26/17 04:50 BUN/Creatinine Ratio 17.7 05/26/17 04:50 Glucose 89 mg/dL (70-105) 05/26/17 04:50 Calcium 9.4 mg/dL (8.6-10.3) 05/26/17 04:50 Total Bilirubin 0.3 mg/dL (0.3-1.0) 05/26/17 04:50 AST 41 U/L (13-39) H 05/26/17 04:50 ALT 20 U/L (7-52) 05/26/17 04:50 Alkaline Phosphatase 73 U/L (34-104) 05/26/17 04:50 Total Protein 6.1 gm/dL (6.0-8.3) 05/26/17 04:50 Albumin 3.3 gm/dL (3.7-5.3) L 05/26/17 04:50 Globulin 2.8 gm/dL 05/26/17 04:50 Albumin/Globulin Ratio 1.2 (1.0-1.8) 05/26/17 04:50 Lipase 62 U/L (11-82) 05/24/17 22:43 Vitamin B12 657 pg/mL (211-946) 05/25/17 10:40 Folic Acid >20.0 ng/mL (>3.0) 05/25/17 10:40 TSH 0.85 uIU/ml (0.34-5.60) 05/25/17 10:40 - Physical Exam Vitals and I&O: Vital Signs Temp 98.4 F 05/27/17 04:00 Pulse 72 05/27/17 10:40 Resp 66 05/27/17 04:00 BP 137/59 05/27/17 10:40 Pulse Ox 99 05/26/17 16:00 Intake & Output 05/26/17 05/27/17 05/27/17 18:59 06:59 18:59 Intake Total 250 Balance 250 Weight (lbs) 70.307 kg 70.307 kg Intake: Oral 250 Other: # Voids 3 4 # Bowel Movements 0 Active Medications: Current Medications Acetaminophen (Tylenol) 325 mg PO BID [facility] Stop: 07/24/17 08:59 Last Admin: 05/27/17 10:36 Dose: 325 mg Acetaminophen/Hydrocodone Bitart ([place] 5mg/325mg) 1 tab PO Q6H PRN PRN Reason: Pain (Severe) Stop: 07/24/17 20:50 Last Admin: 05/27/17 00:20 Dose: 1 tab Amlodipine Besylate (Norvasc) 10 mg PO DAILY [facility] Stop: 07/24/17 08:59 Last Admin: 05/27/17 10:35 Dose: 10 mg Clonidine HCl (Catapres) 0.1 mg PO BID PRN PRN Reason: BP MAINTENANCE (PER PROTOCOL) Stop: 07/24/17 08:04 Dicyclomine HCl (Bentyl) 20 mg PO BID [facility] Stop: 07/24/17 16:59 Last Admin: 05/27/17 10:37 Dose: 20 mg Duloxetine HCl (Cymbalta) 30 mg PO HS [facility] PRN Reason: Protocol Stop: 07/24/17 20:59 Last Admin: 05/27/17 00:20 Dose: 30 mg Ezetimibe (Zetia) 10 mg PO DAILY [facility] Stop: 07/24/17 08:59 Last Admin: 05/27/17 10:36 Dose: 10 mg Fish Oil ([place] 3) 2,000 mg PO BID [facility] Stop: 07/24/17 08:59 Last Admin: 05/27/17 10:35 Dose: 2,000 mg Gabapentin (Neurontin) 400 mg PO TID [facility] Stop: 07/24/17 08:59 Last Admin: 05/27/17 10:34 Dose: 400 mg Heparin Sodium (Porcine) (Heparin) 5,000 units SUBQ Q12HR [facility] Stop: 07/24/17 20:59 Last Admin: 05/27/17 10:38 Dose: 5,000 units Hydralazine HCl (Apresoline) 50 mg PO TID [facility] Stop: 07/24/17 13:59 Last Admin: 05/27/17 10:36 Dose: 50 mg Hydrochlorothiazide (Hctz) 12.5 mg PO DAILY [facility] Stop: 07/24/17 08:59 Last Admin: 05/27/17 10:37 Dose: 12.5 mg Metoprolol Succinate (Toprol Xl) 50 mg PO BID [facility] Stop: 07/24/17 08:59 Last Admin: 05/27/17 10:40 Dose: 50 mg Miscellaneous (Vte Chemical Prophylaxis Screen/ Admission) 1 ea [facility] PRN PRN PRN Reason: PROTOCOL Stop: 07/24/17 09:59 Montelukast Sodium (Singulair) 10 mg PO QPM [facility] Stop: 07/24/17 16:59 Last Admin: 05/26/17 17:00 Dose: 10 mg Multivitamins/Vitamin C (Theragran) 1 tab PO DAILY [facility] Stop: 07/25/17 08:59 Last Admin: 05/27/17 10:36 Dose: 1 tab Ondansetron HCl (Zofran) 4 mg IV Q6H PRN PRN Reason: Nausea / Vomiting Stop: 07/25/17 21:36 Pantoprazole Sodium (Protonix) 40 mg PO DAILY [facility] Stop: 07/25/17 08:59 Last Admin: 05/27/17 10:35 Dose: 40 mg Simvastatin (Zocor) 20 mg PO DAILY [facility] Stop: 07/25/17 08:59 Last Admin: 05/27/17 10:36 Dose: 20 mg Sucralfate (Carafate) 1 gm PO AC [facility] Stop: 07/25/17 16:29 Last Admin: 05/27/17 10:58 Dose: 1 gm Triamcinolone Acetonide (Kenalog 0.1%) 1 appl TP BID [facility] Stop: 07/24/17 08:59 Last Admin: 05/27/17 10:41 Dose: 1 appl
[2017-05-27 12:10] LABS: FOLIC ACID >20.0 ng/mL (>3.0)
[2017-05-28] MEDS: Multivitamin Tab PO SCH (09:15)
[2017-05-28] MEDS: Fish Oil 1,000 MG SGL PO SCH ×2 (09:15→17:50)
[2017-05-28] MEDS: Dicyclomine 10 mg Cap PO SCH ×2 (09:15→17:50)
[2017-05-28] MEDS: Pantoprazole 40 mg EC Tab PO SCH (09:16)
[2017-05-28] MEDS: Triamcinolone Acetonide 0.1% Cream 15 gm TP SCH ×2 (09:16→17:54)
[2017-05-28] MEDS: Hydrocodone/APAP 5mg/325mg Tab PO PRN (22:11)
[2017-05-29 06:14] LABS: URINE BACTERIA FEW /hpf (NONE SEEN); URINE BILIRUBIN NEGATIVE (NEGATIVE); URINE BLOOD NEGATIVE (NEGATIVE); URINE COLOR YELLOW; URINE EPITHELIAL CELLS FEW /lpf (FEW); URINE GLUCOSE (UA) NEGATIVE (NEGATIVE); URINE KETONE NEGATIVE (NEGATIVE); URINE PROTEIN 100 mg/dL (NEGATIVE); URINE RBC 0-2 /hpf (0-5); URINE UROBILINOGEN 0.2 E.U./dL (0.2 - 1.0); URINE WBC 0-2 /hpf (0-5)
[2017-05-29 06:15] LABS: URINE AMORPHOUS SEDIMENT MODERATE URATES (NONE SEEN)
[2017-05-29] MEDS: Dicyclomine 10 mg Cap PO SCH (08:50)
[2017-05-29] MEDS: Fish Oil 1,000 MG SGL PO SCH (08:51)
[2017-05-29] MEDS: Pantoprazole 40 mg EC Tab PO SCH (08:51)
[2017-05-29] MEDS: Triamcinolone Acetonide 0.1% Cream 15 gm TP SCH (08:54)
[2017-05-29] MEDS: Multivitamin Tab PO SCH (09:10)
--- NOTE | 2017-06-01 10:52 | Diagnostic Imaging Report ---
MRI cervical spine HISTORY: Myelopathy Multiple MRI sequences were obtained in the sagittal and axial planes. The exam of the cervical spine is compromised due to artifact related to metallic surgical hardware traversing the bodies and posterior elements at multiple levels. There is severe diffuse degenerative changes. Severe narrowing of the C2-3 interspace. There is fusion involving the bodies of C3 and 4. Marked narrowing of the C4-5 interspace with hypertrophic spur formation. Similarly, severe narrowing and hypertrophic spur formation noted about the C56, C6-7, C7-T1, T1-2 interspace regions. Associated moderate to severe extradural densities in indentations at these levels. Hypertrophic bony changes result in extradural encroachment on the posterior margin the spinal cord at these levels. Combination results in relatively severe spinal stenosis at multiple levels. Evaluation the neural foramina is limited due to the artifact noted above. No intramedullary abnormalities are seen within the cervical cord. The cerebellar tonsils are normal position. Bone marrow retains normal signal intensity. IMPRESSION: 1. Limited/compromised exam due to extensive artifact related to metallic surgical hardware traversing the bodies and posterior elements at multiple levels. 2. Severe diffuse degenerative changes associated with extradural densities in indentations at all levels primarily related to hypertrophic spur formation. Hypertrophic bony changes about the posterior elements also result in extradural encroachment on the posterior spinal cord. The combination of findings results in multilevel spinal stenosis as noted above.
--- NOTE | 2017-06-08 21:46 | Discharge Summary ---
General Discharge Summary - Discharge Summary Date of Admission: 05/25/17 Admitting Diagnosis: ABDOMINAL PAIN. Discharge Date: 05/29/17 Discharge Diagnosis: GASTRITIS,CERVICAL STENOSIS,UTI,DJD,SPASTICITY,BED RIDDEN. Laboratory Findings: Laboratory Tests 05/25/17 05/25/17 05/25/17 10:40 10:40 10:40 WBC RBC Hgb Hct MCV MCH MCHC Differential RDW Plt Count MPV Neutrophils % Lymphocytes % Monocytes % Eosinophils % Basophils % PT INR Sodium Potassium Chloride Carbon Dioxide Anion Gap BUN Creatinine Est GFR ( Amer) Est GFR (Non-Af Amer) BUN/Creatinine Ratio Glucose Calcium Total Bilirubin AST ALT Alkaline Phosphatase Total Protein Albumin Globulin Albumin/Globulin Ratio Vitamin B12 657 Folic Acid >20.0 TSH 0.85 Urine Source Urine Color Urine Clarity Urine pH Ur Specific [place] Urine Protein Urine Glucose (UA) Urine Ketones Urine Blood Urine Nitrate Urine Bilirubin Urine Urobilinogen Ur Leukocyte Esterase Urine RBC Urine WBC Ur Epithelial Cells Amorphous Sediment Urine Bacteria Helicobacter pylori Ab 05/26/17 05/26/17 05/26/17 04:50 04:50 04:50 WBC 7.2 RBC 3.45 L Hgb 10.3 L Hct 31.5 L MCV 91.2 MCH 29.9 MCHC Differential 32.8 RDW 14.6 Plt Count 301 MPV 7.3 Neutrophils % 62.4 Lymphocytes % 31.2 Monocytes % 4.3 Eosinophils % 1.5 Basophils % 0.6 PT 9.6 INR 0.92 Sodium 139 Potassium 3.5 Chloride 106 Carbon Dioxide 29.6 Anion Gap 6.9 L BUN 23 Creatinine 1.3 H Est GFR ( Amer) TNP Est GFR (Non-Af Amer) TNP BUN/Creatinine Ratio 17.7 Glucose 89 Calcium 9.4 Total Bilirubin 0.3 AST 41 H ALT 20 Alkaline Phosphatase 73 Total Protein 6.1 Albumin 3.3 L Globulin 2.8 Albumin/Globulin Ratio 1.2 Vitamin B12 Folic Acid TSH Urine Source Urine Color Urine Clarity Urine pH Ur Specific [place] Urine Protein Urine Glucose (UA) Urine Ketones Urine Blood Urine Nitrate Urine Bilirubin Urine Urobilinogen Ur Leukocyte Esterase Urine RBC Urine WBC Ur Epithelial Cells Amorphous Sediment Urine Bacteria Helicobacter pylori Ab 05/26/17 05/26/17 05/29/17 04:50 12:20 05:30 WBC RBC Hgb Hct MCV MCH MCHC Differential RDW Plt Count MPV Neutrophils % Lymphocytes % Monocytes % Eosinophils % Basophils % PT INR Sodium Potassium Chloride Carbon Dioxide Anion Gap BUN Creatinine Est GFR ( Amer) Est GFR (Non-Af Amer) BUN/Creatinine Ratio Glucose Calcium Total Bilirubin AST ALT Alkaline Phosphatase Total Protein Albumin Globulin Albumin/Globulin Ratio Vitamin B12 932 Folic Acid >20.0 TSH Urine Source CATH Urine Color YELLOW Urine Clarity CLEAR Urine pH 6.0 Ur Specific [place] 1.015 Urine Protein 100 H Urine Glucose (UA) NEGATIVE Urine Ketones NEGATIVE Urine Blood NEGATIVE Urine Nitrate NEGATIVE Urine Bilirubin NEGATIVE Urine Urobilinogen 0.2 Ur Leukocyte Esterase NEGATIVE Urine RBC 0-2 Urine WBC 0-2 Ur Epithelial Cells FEW Amorphous Sediment MODERATE URATES Urine Bacteria FEW Helicobacter pylori Ab NEGATIVE Hospital Course: PATIENT WAS ADMITTED FROM ER FOR EVALUATION OF HER SYMPTOMS.PATIETN UNDER WENT EGD WHICH REVEAL GASTRITIS,DUODENITIS,HITAL HERNIA.PATIENT WAS RECEIVING PPI. PATIENT WAS SEEN BY NEUROLOGY WELL. PATIENT ALSO UNDERWENT MRI OF C SPINE, I REVIEWED REPORT WITH FAMILY AND CREDIT CARD INTERVIEWER RECOMMENDATIONS. FAMILY WANTED TO TAKE HER HOME WITH HOME HEALTH. PATIENT WAS DC WITH SAME MEDS PATIENT WAS RECEIVING. PATIENT WILL BE FOLLOWED BY HER PCP IN 1 WEEK. Condition at Discharge: Stable Disposition: PT DISCHARGED HOME Home Medications: Home Medication Medication Instructions Recorded Type Acetaminophen [Tylenol] 325 mg PO BID 05/24/17 History Amlodipine Besylate 10 mg PO DAILY 05/24/17 History Clonidine HCl [Catapres] 0.1 mg PO BID PRN 05/24/[address] [Cymbalta] 30 mg PO HS 05/24/17 History Ezetimibe [Zetia] 10 mg PO DAILY 05/24/17 History Gabapentin 400 mg PO TID 05/24/17 History Hydralazine HCl [Hydralazine HCl] 50 mg PO TID 05/24/17 History Hydrochlorothiazide [Hctz] 12.5 mg PO DAILY 05/24/17 History Icosapent Ethyl [Vascepa] 2 cap PO BID 05/24/17 History Metoprolol Succinate 50 mg PO BID 05/24/17 History Montelukast [Singulair] 10 mg PO QPM 05/24/17 History Multivit-Min/FA/Lycopen/Lutein 1 each PO DAILY 05/24/17 History [Centrum Silver Tablet] Omeprazole 10 mg PO DAILY 05/24/17 History Pravastatin Sodium [Pravastatin*] 40 mg PO DAILY 05/24/17 History Triamcinolone Acet 0.1% Cream 1 appl TP BID 05/24/17 History [Kenalog 0.1%] Consults and Follow-Up: not on staff,PCP is [Primary Care Provider] - Instructions: Abdominal Pain
== END 2017-05-29 18:00 | disposition home or self-care (01) | DRG 391 ==
LOC: ER 21:44 → TELE 05-25 01:45
PROVIDERS: ADMIT Internal Medicine; ATTEND Internal Medicine
PROC: 0DB98ZX Excision of Duodenum, Via Natural or Artificial Opening Endoscopic, Diagnostic (ICD-10-PCS; principal; 2017-05-26)
PROC: 0DB68ZX Excision of Stomach, Via Natural or Artificial Opening Endoscopic, Diagnostic (ICD-10-PCS; 2017-05-26)
DX: K29.70 Gastritis, unspecified, without bleeding (principal); G82.50 Quadriplegia, unspecified; G62.9 Polyneuropathy, unspecified; N39.0 Urinary tract infection, site not specified; I10 Essential (primary) hypertension; E78.5 Hyperlipidemia, unspecified; M19.90 Unspecified osteoarthritis, unspecified site; G25.2 Other specified forms of tremor; M48.00 Spinal stenosis, site unspecified; K29.80 Duodenitis without bleeding; K44.9 Diaphragmatic hernia without obstruction or gangrene; M54.9 Dorsalgia, unspecified; G89.29 Other chronic pain; K41.90 Unilateral femoral hernia, without obstruction or gangrene, not specified as recurrent; K42.9 Umbilical hernia without obstruction or gangrene; R11.2 Nausea with vomiting, unspecified; Z74.01 Bed confinement status; Z83.3 Family history of diabetes mellitus; Z79.899 Other long term (current) drug therapy; Z82.49 Family history of ischemic heart disease and other diseases of the circulatory system
CPT/HCPCS: 36415-UA; 70450-TC; 71010-TC; 72125-TC; 72141-TC; 74000-TC; 80053-TC; 81001-TC; 82607-90; 82746-90; 83690-TC; 84443-TC; 85025-TC; 85610-TC; 87086-90; 87338-TC; 93005; 96374; J1644; J2405; J2543; J2704; X5958; Z7610